=== PATIENT | female | born 1995 | race Caucasian/White ===

== ENCOUNTER 2016-09-07 09:22 | Emergency (ER) | payer BC ==
--- NOTE | 2016-09-07 10:47 | ER NURSING DOCUMENTATION ---
Nurse's Notes [facility] Name:Cachorro Torres Age:21 yrs Sex:Female :1995 Arrival Date:09/07/2016 Time:09:22 Bed5 Private MD: Diagnosis:Viral Upper Respiratory Infection (URI);Constipation Presentation: 09/07 09:24 Acuity: OVIDIO 3 tg 09:26 Presenting complaint: Patient states: Sore throat the past few days, URI, works at [employer]. Last normal BM 8 days ago, generalized ABD pain. Transition of care: patient was not received from another setting of care. 09:26 Method Of Arrival: Private Vehicle tg Triage Assessment: 09:38 General: Appears in no apparent distress, Behavior is cooperative. Pain: Complains of tg pain in throat and abdomen. EENT: Throat is reddened has enlarged tonsils. Cardiovascular: Capillary refill < 3 seconds. Respiratory: Respiratory effort is even, unlabored. GI: Reports constipation. Historical: - Allergies: No known drug Allergies; - Home Meds: 1. Lexapro Oral 2. Provigil oral - PMHx: ANXIETY; hypersomnia; - PSHx: None; - Tetanus: < 10 years. - Ebola Screening: : Patient negative for fever greater than or equal to 101.5 degrees Fahrenheit, and additional compatible Ebola Virus Disease symptoms. Patient denies exposure to infectious person. Patient denies travel to an Ebola-affected area in the 21 days before illness onset. No symptoms or risks identified at this time. . - Immunization history: Flu Vaccine unknown. - Social history: Smoking status: Patient states was never smoker of tobacco. Screenin:39 Infectious Disease Risk Unable to Obtain. Abuse screen: Denies threats or abuse. Denies tg injuries from another. Nutritional screening: No deficits noted. Assessment: 10:46 Respiratory: Airway is patent Breath sounds are clear bilaterally. lp Vital Signs: 09:30 BP 117 / 79; Pulse 84; Resp 16; Temp 98.8(O); Pulse Ox 96% on R/A; Weight 68.04 kg (R); tg Height 5 ft. 8 in. (172.72 cm) (R); Pain 2/10; 10:45 BP 102 / 75; Pulse 73; Resp 16; Temp 98(TE); Pulse Ox 98% on R/A; lp 09:30 Body Mass Index 22.81 (68.04 kg, 172.72 cm) tg ED Course: 09:23 Patient arrived in ED. arc 09:24 Luis Romero, RN is Primary Nurse. tg 09:24 Triage completed. tg 09:38 Og Roldan MD is Attending Physician. cd 09:39 Arm band placed on. tg 09:40 Valuables Remains with patient. tg 09:40 Strep culture sent to lab. tg Administered Medications: No medications were administered Outcome: 10:36 Discharge ordered by . cd 10:46 Discharged to home ambulatory. lp 10:46 Condition: improved 10:46 Instructed on discharge instructions, follow up and referral plans. medication usage. 10:47 Patient left the ED. lp 09/08 16:27 Discharge F/U Call: Unable to reach: left voicemail: [email or web address] Signatures: Luis Romero, RN RN Alisson Rojas RN RN lc Pavlish, Lena, RN RN Og Roldan MD MD cd Chew, Amelia, Reg Reg arc
--- NOTE | 2016-09-07 10:47 | ER PHYSICIAN DOCUMENTATION ---
Physician Documentation [facility] Name:Cachorro Torres Age:21 yrs Sex:Female :1995 Arrival Date:09/07/2016 Time:09:22 Bed5 Private MD: Og Foreman Disposition: 09/07 10:30 Chart complete. cd Disposition: 09/07/16 10:36 Discharged to Home/Self Care. Impression: Viral Upper Respiratory Infection (URI), Constipation. - Condition is Good. - Discharge Instructions: CONSTIPATION (Adult), VIRAL URI Adult - URI, Viral, No Abx (Adult). - Medical Reconciliation form form. - Follow up: Private Physician; When: 7 - 10 days; Reason: Recheck today's complaints, Continuance of care. - Problem is new. - Symptoms are unchanged. - Notes: Use Claritin-D as directed OTC for 5 days. Tyelnol for sore throat or headache or fever. Drink 2 -3 quarts of water or Gatorade every day. Chloroseptic Mouth Byron for your sore throat prn. For your Constipation... Take Dycosylate Sodium 240mg by mouth every 12 hours for 5 days (Stool Softener) MOM (Milk of Magnesia) as directed on the bottle. Be close to a restroom. Eat Bran Cereal, bread, prunes and roughage.... HPI: 09:45 This 21 yrs old Female presents to ER via Private Vehicle with complaints of cd Sore Throat and constipation. 09:45 The patient presents with sore throat. cd 09:45 The patient or guardian reports Rhinorhea, sore throat. Onset: The symptom(s)/episode cd began/occurred acutely, 2 day(s) ago. Severity of symptoms: At their worst the symptoms were mild, in the emergency department the symptoms are unchanged. Associated signs and symptoms: Pertinent positives: rhinorrhea, sore throat, Pertinent negatives: ear ache, fever, vomiting. 09:45 Patient also complains of constipation for 2 - 3 days. cd Historical: - Allergies: No known drug Allergies; - Home Meds: 1. Lexapro Oral 2. Provigil oral - PMHx: ANXIETY; hypersomnia; - PSHx: None; - Tetanus: < 10 years. - Ebola Screening: : Patient negative for fever greater than or equal to 101.5 degrees Fahrenheit, and additional compatible Ebola Virus Disease symptoms. Patient denies exposure to infectious person. Patient denies travel to an Ebola-affected area in the 21 days before illness onset. No symptoms or risks identified at this time. . - Immunization history: Flu Vaccine unknown. - Social history: Smoking status: Patient states was never smoker of tobacco. ROS: 09:45 Constitutional: Positive for poor PO intake, Negative for chills, fever. cd 09:45 ENT: Positive for rhinorrhea, sinus congestion, sore throat, Negative for sinus pain. 09:45 Respiratory: Negative for shortness of breath, wheezing. 09:45 Abdomen/GI: Positive for constipation, Negative for abdominal pain. 09:45 All other systems are negative. Exam: 09:45 Constitutional: This is a well developed, well nourished patient who is awake, alert, cd and in no acute distress. 09:45 Neck: Trachea midline, no thyromegaly or masses palpated, and no cervical cd lymphadenopathy. Supple, full range of motion without nuchal rigidity, or vertebral point tenderness. No Meningismus. 09:45 Head/face: Sinus tenderness, is not appreciated. 09:45 Eyes: Exam is negative for acute changes. 09:45 ENT: TM's: are normal, Nose: congested, Mouth: is normal, no acute changes, Posterior pharynx: is normal, Tonsils: are normal in appearance, no enlargement, no erythema, no exudate. 09:45 Respiratory: the patient does not display signs of respiratory distress, Respirations: normal, no acute changes, Breath sounds: are normal, clear throughout. Vital Signs: 09:30 BP 117 / 79; Pulse 84; Resp 16; Temp 98.8(O); Pulse Ox 96% on R/A; Weight 68.04 kg (R); tg Height 5 ft. 8 in. (172.72 cm) (R); Pain 2/10; 10:45 BP 102 / 75; Pulse 73; Resp 16; Temp 98(TE); Pulse Ox 98% on R/A; lp 09:30 Body Mass Index 22.81 (68.04 kg, 172.72 cm) tg MDM: 09:38 Patient medically screened. cd 10:30 Data reviewed: vital signs, nurses notes, old medical records, and as a result, I will cd discharge patient. Data interpreted: Pulse oximetry: on room air is 98 %. Interpretation: normal. Counseling: I had a detailed discussion with the patient and/or guardian regarding: the historical points, exam findings, and any diagnostic results supporting the discharge/admit diagnosis, the need for outpatient follow up, for a recheck, with the patient's primary care provider, to return to the emergency department if symptoms worsen or persist or if there are any questions or concerns that arise at home. 09/07 10:31 Order name: RAPID STREP SCRN CUL IF NEG; Complete Time: 10:35 EDMS 09/07 10:35 Interpretation: Normal. cd 09/08 07:15 Order name: THROAT FOR BETA STREP EDMS Dispensed Medications: No medications were administered Signatures: Luis Romero, RN RN Siria Chavez RN RN Og Bender MD MD cd
== END 2016-09-07 10:47 | disposition home or self-care (01) ==
LOC: ER 09:22
DX: J06.9 Acute upper respiratory infection, unspecified (principal); K59.00 Constipation, unspecified
CPT/HCPCS: 86403; 87081; 99283